=== PATIENT | female | born 1985 | race American Indian/Alaskan Native ===

== ENCOUNTER 2017-11-27 04:41 | Emergency (ER) | payer MEDICAID ==
[2017-11-27 06:23] LABS: Hematocrit 36.8 % (30.3-42.9); Hemoglobin 12.9 gm/dl (10.1-14.3); Mean Corpuscular HGB Conc 35 % (30-34); Mean Corpuscular Hemoglobin 28 pg (28-32); Mean Corpuscular Volume 80 fl (79-97); Platelet Count 330 K/mm3 (140-440); Red Blood Count 4.58 M/mm3 (3.65-5.03); Red Cell Distribution Width 16.9 % (13.2-15.2)
[2017-11-27 06:32] LABS: BUN/Creatinine Ratio 13; Blood Urea Nitrogen 12 mg/dL (7-17); Calcium 9.2 mg/dL (8.4-10.2); Hemolysis Index 36
[2017-11-27 06:41] LABS: Bacteria,Urine 1+ /HPF (Negative); Bilirubin,Urine NEG (Negative); Blood,Urine LG (Negative); Color,Urine Yellow (Yellow); Mucus,Urine 3+ /HPF
[2017-11-27 07:40] LABS: Anisocytosis 1+; Stomatocytes Few; Target Cells Rare; Total Cells Counted 100
--- NOTE | 2017-11-27 08:02 | Emergency Department Report ---
ED General Adult HPI - General Chief complaint: Psych Stated complaint: MH EVAL Time Seen by Provider: 11/27/17 06:06 Source: patient, EMS Mode of arrival: Ambulatory Limitations: No Limitations - History of Present Illness Initial comments: 32-year-old female with a history of bipolar disorder and schizophrenia presents after being brought in by family as patient has been noncompliant with her psych meds for the past month. Patient has been having auditory hallucinations. Patient states that Lucia' is her doctor. Patient states that Lucia' told her that she needs to go to [place] to be admitted. Patient states that her last admission was in [place] in March 2017. Patient denies any homicidal ideation or suicidal ideation. Patient denies any chest pain or shortness of breath. Patient denies any abdominal pain. - Related Data Allergies Allergy/AdvReac Type Severity Reaction Status Date / Time Unable to Assess Allergy Unverified 11/27/17 05:23 ED Review of Systems ROS: Stated complaint: EVAL Other details as noted in HPI Constitutional: denies: chills, fever Eyes: denies: eye pain, eye discharge, vision change ENT: denies: ear pain, throat pain Respiratory: denies: cough, shortness of breath, wheezing Cardiovascular: denies: chest pain, palpitations Endocrine: no symptoms reported Gastrointestinal: denies: abdominal pain, nausea, diarrhea Genitourinary: denies: urgency, dysuria, discharge Musculoskeletal: denies: back pain, joint swelling, arthralgia Skin: denies: rash, lesions Neurological: denies: headache, weakness, paresthesias Psychiatric: auditory hallucinations Hematological/Lymphatic: denies: easy bleeding, easy bruising ED Past Medical Hx - Past Medical History Previous Medical History?: Yes Hx Psychiatric Treatment: Yes (bipolar, schizophrenia) - Surgical History Additional Surgical History: unk - Social History Smoking Status: Smoker, Current Status Unknown ED Physical Exam - General Limitations: No Limitations General appearance: alert, in no apparent distress - Head Head exam: Present: atraumatic, normocephalic - Eye Eye exam: Present: normal appearance - ENT ENT exam: Present: mucous membranes moist - Neck Neck exam: Present: normal inspection, full ROM - Respiratory Respiratory exam: Present: normal lung sounds bilaterally. Absent: respiratory distress - Cardiovascular Cardiovascular Exam: Present: regular rate, normal rhythm. Absent: systolic murmur, diastolic murmur, rubs, gallop - GI/Abdominal GI/Abdominal exam: Present: soft, normal bowel sounds - Extremities Exam Extremities exam: Present: normal inspection - Back Exam Back exam: Present: normal inspection - Neurological Exam Neurological exam: Present: alert, oriented X3 - Psychiatric Psychiatric exam: Present: agitated, flat affect, manic - Skin Skin exam: Present: warm, dry, intact, normal color. Absent: rash ED Course Vital Signs 11/27/17 11/27/17 05:51 11:01 Temperature 98.6 F 98.4 F Pulse Rate 72 64 Respiratory 20 18 Rate Blood Pressure 121/81 139/84 [Left] O2 Sat by Pulse 98 100 Oximetry - Consultations Consultation #1: 11/27/17 08:03 Behavioral Health was consulted regarding the patient and patient will be placed on a 1013. Patient to be likely transferred to [facility] ED Medical Decision Making - Lab Data Result diagrams: 11/27/17 06:03 11/27/17 06:03 - Medical Decision Making DDX: Electrolyte abnormality; anemia; psychosis; substance abuse; Patient is placed on a 1013 and will be likely transferred to [facility] for continued management and treatment. Critical care attestation.: If time is entered above; I have spent that time in minutes in the direct care of this critically ill patient, excluding procedure time. ED Disposition Clinical Impression: Acute psychosis, Bipolar disorder, Schizophrenia Disposition: [id number] PSY HOSP/PSY UNIT Is pt being admited?: Yes Condition: Stable Referrals: PRIMARY CARE, [Primary Care Provider] - 3-5 Days Time of Disposition: 08:08
[2017-11-27 11:01] VITALS: BP 139/84
[2017-11-27 12:36] LABS: HCG Qualitative,Urine Negative (Negative)
[2017-11-27 12:45] LABS: Amphetamine Screen,Urine PRESUMPTIVE NEGATIVE; Benzodiazepines Screen,Urine PRESUMPTIVE NEGATIVE; Cocaine Screen,Urine PRESUMPTIVE NEGATIVE; Methadone Screen,Urine PRESUMPTIVE NEGATIVE; Opiate Screen,Urine PRESUMPTIVE NEGATIVE
[2017-11-27 12:57] LABS: Cannabinoid Screen,Urine PRESUMPTIVE POSITIVE
== END 2017-11-27 14:42 ==
LOC: ED 04:41 → EEVIPCON 04:41 → ED 14:42
DX: F31.9 Bipolar disorder, unspecified (principal); F20.9 Schizophrenia, unspecified
CPT/HCPCS: 36415; 80048; 80307; 81001; 81025; 85007; 85025; 99285; G0480; 80320

== ENCOUNTER 2019-04-29 22:28 | Emergency (ER) | payer MEDICAID | END 2019-04-29 22:35 | disposition left against medical advice (07) | LOC: ED 22:28 | DX: R44.0 Auditory hallucinations (principal); Z53.21 Procedure and treatment not carried out due to patient leaving prior to being seen by health care provider ==

== ENCOUNTER 2019-04-29 22:42 | Emergency (ER) | payer MEDICAID | END 2019-04-29 23:15 | disposition left against medical advice (07) | LOC: ED 22:42 | DX: Z53.21 Procedure and treatment not carried out due to patient leaving prior to being seen by health care provider (principal) ==